=== PATIENT | female | born 1965 | race Caucasian/White ===

== ENCOUNTER 2019-12-19 16:24 | Emergency (ER) | payer MEDICARE, OTHER ==
[~2019-12-19] VITALS: Ht 165.1 cm; Wt 70.8 kg
--- NOTE | 2019-12-19 16:30 | NUR ---
pat, from [facility], sent by PMD due to covid 19 positive. PT C/O COUGH. AAOX4, VSS. RR EVEN & UNLABORED. DENIES SOB, DIZZINESS, N/V/D, WEAKNESS AT THIS TIME. AFEBRILE. PT SEEN & EVAL'D BY DR. MENDEZ. WILL CONT TO MONITOR.
--- NOTE | 2019-12-19 18:30 | NUR ---
Note keli in ED - 12/19/19 at 2052 by FLY PT STABLE, NO RESP DISTRESS NOTED AT THIS TIME. WILL CONT TO MONITOR.
--- NOTE | 2019-12-19 19:15 | NUR ---
Pt accepted to [facility] Accepting MD is Dr. Acekrman Number for report is [phone]
--- NOTE | 2019-12-19 19:20 | NUR ---
TRANSPORT CALLED ETA IS 45 MINS. AM [facility]
--- NOTE | 2019-12-19 20:38 | NUR ---
REPORT GIVEN TO ALTAF, CREMATORY OPERATOR @ [facility].
[2019-12-19] MEDS ORDERED: AMLODIPINE BESYLATE 5 MG TABLET ONE (20:57)
[2019-12-19] MEDS ORDERED: AMLODIPINE BESYLATE 5 MG TABLET PO ONE (21:00)
--- NOTE | 2019-12-19 21:11 | NUR ---
MEDICATED FOR HI BP PER ERMD ORDER, PT GILA WELL.
[2019-12-19] MEDS ORDERED: OLANZAPINE 5 MG TABLET ONE (21:36)
--- NOTE | 2019-12-19 21:44 | NUR ---
PT GETTING ANXIOUS, MEDICATED PER ERMD ORDER, PT GILA WELL.
[2019-12-19] MEDS ORDERED: OLANZAPINE 5 MG/TAB.RAPDIS PO ONE (22:00)
--- NOTE | 2019-12-19 22:06 | NUR ---
MONIKA BOOTH - BROTHER. [phone]
--- NOTE | 2019-12-19 22:59 | NUR ---
PT ASLEEP, EASILY AWAKEN BY VERBAL STIMULI. DENIES CP, SOB, DIZZINESS, N/V AT THIS TIME. WILL CONT TO MONITOR.
--- NOTE | 2019-12-19 23:13 | NUR ---
[facility] ETA [phone]
[2019-12-20 01:29] VITALS: BP 110/84
--- NOTE | 2019-12-20 01:29 | NUR ---
REPORT GIVEN TO EMS. PT STABLE FOR DC
== END 2019-12-20 01:29 ==
LOC: ER 16:29
DX: U07.1 COVID-19 (principal); J44.9 Chronic obstructive pulmonary disease, unspecified; F17.200 Nicotine dependence, unspecified, uncomplicated; R45.1 Restlessness and agitation; R03.0 Elevated blood-pressure reading, without diagnosis of hypertension
CPT/HCPCS: 71045-TC